=== PATIENT | female | born 2000 | race Caucasian/White ===

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

== ENCOUNTER → 2019-02-20 | Outpatient (CLI) | payer OTHER ==
--- NOTE | 2019-02-20 14:18 | REP ---
Sinus series: Four views. History: Acute frontal sinusitis. Findings: Four views of the paranasal sinuses are presented. The frontal sinuses are clear. Sphenoid sinuses appear clear. Maxillary sinuses are clear. There is no evidence of ethmoid sinus opacification. Mastoid aeration appears normal. Bony sinus margins and orbital margins are intact. Impression: Negative paranasal sinus series. Electronically Signed by Levi Muñoz MD 02/20/2019 02:09 P
[2019-02-20 17:57] LABS: BASO # 0.1 10^3/uL (0.0-0.2); BASO % 0.4 % (0.0-1.0); EOS # 0.1 10^3/uL (0.0-0.5); EOS % 0.5 % (0.0-3.0); HEMATOCRIT 44.2 % (36.0-47.0); HEMOGLOBIN 14.1 g/dl (12.0-15.5); LYMPH # 1.4 10^3/uL (1.5-5.0); MEAN CORPUSCULAR HEMOGLOBIN 30.7 pg (27.0-33.0); MEAN CORPUSCULAR HGB CONC 31.9 g/dl (32.0-36.5); MEAN CORPUSCULAR VOLUME 96.1 fl (80.0-96.0); MONO # 0.7 10^3/uL (0.0-0.8); MONO % 5.8 % (0.0-5.0); NEUTROPHILS # 10.4 10^3/uL (1.5-8.5); NEUTROPHILS % 82.1 % (36.0-66.0); PLATELET COUNT, AUTOMATED 257 10^3/uL (150-450); WHITE BLOOD COUNT 12.7 10^3/uL (4.0-10.0)
[2019-02-20 18:15] LABS: ALBUMIN 3.7 GM/DL (3.2-5.2); ALT/SGPT 28 U/L (12-78); BILIRUBIN,TOTAL 0.5 MG/DL (0.2-1.0); BLOOD UREA NITROGEN 13 MG/DL (7-18); C REACTIVE PROTEIN QUANTITATIV 1.73 MG/DL (0.00-0.30); CARBON DIOXIDE LEVEL 29 MEQ/L (21-32); CHLORIDE LEVEL 107 MEQ/L (98-107); CREATININE FOR GFR 0.83 MG/DL (0.55-1.30); FREE T4 1.24 NG/DL (0.78-1.33); GLUCOSE, FASTING 62 MG/DL (70-100); IRON (FE) 50 UG/DL (50-170); PERCENT SATURATION 12.9 % (13.2-45.0); POTASSIUM SERUM 4.3 MEQ/L (3.5-5.1); SODIUM LEVEL 141 MEQ/L (136-145); TOTAL IRON BINDING CAPACITY 388 UG/DL (250-450); TOTAL PROTEIN 7.3 GM/DL (6.4-8.2)
== END ==
LOC: M WUC 12:46
PROVIDERS: ATTEND Physician Assistant
DX: J01.10 Acute frontal sinusitis, unspecified (principal); J02.9 Acute pharyngitis, unspecified; R53.83 Other fatigue

== ENCOUNTER 2019-04-18 06:06 | Day surgery (SDC) | payer OTHER ==
[~2019-04-18] VITALS: Ht 160 cm; Wt 71.2 kg
[~2019-04-18 06:06] MED LIST: ALLE180T33 PO; BLAC1CAP2 PO; L-NO1TBD4 PO; LIDOCAINE 1% MDV 20ML VIAL SQ PRN; LIDOCAINE 2% INJ 100 MG/5 ML SDV (FOR ANES.) As Ordered ONE; MIDAZOLAM INJ 2 MG/2 ML VIAL (J2250) As Ordered ONE; MULT1TAB8 PO; ONDANSETRON 4MG/2ML VIAL (J2405) As Ordered ONE; PROPOFOL 200 MG/20 ML VIAL As Ordered ONE; ROCURONIUM BROMIDE 50 MG/5 ML VIAL As Ordered ONE; SYNT125T PO; dexameTHASONE 4 MG/ML 1ML VIAL (J1100) As Ordered ONE; fentaNYL 100 MCG/2 ML INJECTION (J3010) As Ordered ONE
[2019-04-18] MEDS ORDERED: LIDOCAINE 2% INJ 100 MG/5 ML SDV (FOR ANES.) As Ordered ONE (06:12)
[2019-04-18] MEDS ORDERED: LIDOCAINE W/EPINEPHRINE 1% 20ML VIAL As Ordered ONE (06:57)
[2019-04-18] MEDS ORDERED: BUPIVACAINE/EPIN 0.5% 30 ML VIAL As Ordered ONE (06:57)
[2019-04-18] MEDS ORDERED: LR 1,000 ML IV ONE (07:00)
[2019-04-18] MEDS ORDERED: SUGAMMADEX SODIUM 500 MG/5 ML VIAL (BRIDION) As Ordered ONE (07:50)
[2019-04-18] MEDS ORDERED: ONDANSETRON 4MG/2ML VIAL (J2405) As Ordered ONE (08:28)
[2019-04-18] MEDS ORDERED: fentaNYL 100 MCG/2 ML INJECTION (J3010) IV PRN (08:45)
[2019-04-18] MEDS ORDERED: LR 1,000 ML IV SCH ×2 (08:45→09:46)
[2019-04-18] MEDS ORDERED: METOCLOPRAMIDE INJ 10MG/2ML VIAL (J2765) IV PRN ×2 (08:45→10:15)
[2019-04-18] MEDS ORDERED: PERCOCET 5MG/325MG TAB PO PRN (08:45)
[2019-04-18] MEDS ORDERED: ONDANSETRON 4MG/2ML VIAL (J2405) IV PRN (08:45)
[2019-04-18] MEDS ORDERED: ACETAMINOPH W/CODEINE #3 TAB UD PO PRN (09:46)
[2019-04-18 11:20] VITALS: BP 119/63
--- NOTE | 2019-04-19 09:58 | RO ---
DATE OF PROCEDURE: 04/18/2019 PREPROCEDURE DIAGNOSIS: Chronic tonsillitis. POSTPROCEDURE DIAGNOSIS: Chronic tonsillitis. OPERATIVE PROCEDURE: Tonsillectomy. SURGEON: Xavier Lamas MD OVER SHORT AND DAMAGE CLERK: ANESTHESIA: General. DESCRIPTION OF PROCEDURE: Under general anesthesia with the patient intubated, a Aj-Thai mouth gag was inserted. The tonsil area was infiltrated with lidocaine, epinephrine and Marcaine. Using the cautery, I dissected the tonsil free from its bed on both sides. The base, apex and other areas were cauterized. The patient tolerated the procedure well. No blood loss. Patient was extubated and transferred to the recovery room in excellent condition.
== END 2019-04-18 11:10 | disposition home or self-care (01) ==
LOC: M SDC 06:06
PROVIDERS: ATTEND Otolaryngology
DX: J35.01 Chronic tonsillitis (principal); E03.9 Hypothyroidism, unspecified; Z88.1 Allergy status to other antibiotic agents; Z79.899 Other long term (current) drug therapy; F41.9 Anxiety disorder, unspecified
CPT/HCPCS: 42826; 81025; 88302; J1100; J2250; J2405; J2765; J3010